=== PATIENT | male | born 1995 | race Caucasian/White ===

== ENCOUNTER 2017-11-16 16:45 | Emergency (ER) | payer SELFPAY ==
[~2017-11-16] VITALS: Ht 180.3 cm; Wt 65.8 kg
== END 2017-11-16 18:45 | disposition home or self-care (01) ==
LOC: ED 16:45
DX: F15.129 Other stimulant abuse with intoxication, unspecified (principal); F12.929 Cannabis use, unspecified with intoxication, unspecified; E11.9 Type 2 diabetes mellitus without complications; F17.200 Nicotine dependence, unspecified, uncomplicated
CPT/HCPCS: 80053; 80176; 81001; 84443; 85025; 99283; G0480